=== PATIENT | female | born 1955 | race African-American/Black ===

== ENCOUNTER 2016-09-29 09:55 | Day surgery (SDC) | payer BC ==
--- NOTE | 2016-09-29 07:37 | History and Physical Report ---
DATE OF EVALUATION: 09/29/2016. CHIEF COMPLAINT AND HISTORY OF CHIEF COMPLAINT: This patient presents with a history of intractable lumbar radiculitis. The patient does have a history of spinal surgery and unresolved pain throughout the back and legs. Due to the failure of all therapies and medication-related issues, she was referred for an intraspinal infusion trial by her primary care physician, Dr. Mirza Arevalo. She is here for an implanted spinal catheter infusion trial with hydromorphone. Her CT studies do show pedicle screw and denisse fusion of the lumbar spine from 3- 4 to 5-1. PAST MEDICAL HISTORY: Hypertension, asthmatic bronchitis, gastrointestinal reflux, irritable bowel syndrome, bladder dysfunction with incontinence, migraine headaches, anxiety disorder. REVIEW OF SYSTEMS: The patient seems appropriate and in no acute distress. The remainder of the systems review shows [] SOCIAL HISTORY: Caffeine. FAMILY HISTORY: Provided. PAST SURGICAL HISTORY: Lumbar spinal surgery times two, spinal stimulator, laminectomy insertion. ALLERGIES: List provided; includes multiple antibiotics. MEDICATIONS ON ADMISSION: To be provided. PHYSICAL EXAMINATION: General: Height and weight are unknown. Vital Signs: Blood pressure is 140/70. Musculoskeletal: Current examination shows diffuse tenderness in the lumbar spine. Range of motion does cause pain throughout the low back, adjacent laminectomy scar, and extending into bilateral lower extremities. Ambulation: Suggests an assistive device. Neurologic: Cranial nerves are intact. IMPRESSIONS: 1. POSTLUMBAR LAMINECTOMY SYNDROME, ICD10 CODE M96.1. 2. LUMBAR RADICULITIS, ICD10 CODE M54.16 AND M54.17. PLANS: This patient is here for an implanted spinal catheter infusion trial with hydromorphone to determine if the full implantation of a system would be of any value in long-term pain control. The implanted catheter variation is being used to help limit the incidents of side effects including a spinal headache which is important because of her history of headaches. The implanted spinal catheter procedure has been thoroughly discussed including incision which may require removal should the trial fail. The potential risks, side effects, and complications including nerve root injury, spinal headache, and all other potential nervous system and vascular complications, have all been reviewed and discussed. All of the appropriate information through the grocery store associate has been provided for review. All questions have been answered. We will consider this an outpatient procedure, although an overnight stay will be evaluated. Vitaly Bartlett D.O. Date Time JOB NUMBER: [id number] cc: Tim June
[~2016-09-29 09:55] MED LIST: ACETAMINOPHEN 1000MG/100 ML PREMIX IV ONE; FAMOTIDINE 20MG TABLET PO ONE; HYDROMORPHONE HCL IV ONE; HYDROMORPHONE HCL/PF 0.002 MG in 0.9 % SODIUM CHLORIDE 10ML VIA 0.998 ML IV ONE; LEVOFLOXACIN 500MG IVPB 100 ML IVPB ONE; MECLIZINE 25 MG TABLET PO ONE; METOCLOPRAMIDE 10 MG TABLET PO ONE; SODIUM CHLORIDE 0.9% IV ONE
[2016-09-29] MEDS ORDERED: DIPHENHYDRAMINE HCL IV 50 MG/ML VIAL IVP PRN ×2 (13:13)
[2016-09-29] MEDS ORDERED: TEMAZEPAM 15 MG CAPSULE PO PRN ×2 (13:13)
[2016-09-29] MEDS ORDERED: OXYCODONE/APAP 10MG-325MG TABLET PO PRN (13:13)
[2016-09-29] MEDS ORDERED: METOCLOPRAMIDE HCL 10 MG/2 ML VIAL IVP PRN (13:13)
[2016-09-29] MEDS ORDERED: HYDROCODONE/APAP 7.5/325MG TABLET PO PRN ×2 (13:13)
[2016-09-29] MEDS ORDERED: METOCLOPRAMIDE 10 MG TABLET PO PRN (13:13)
[2016-09-29] MEDS ORDERED: AL HYDROX/MAG HYDROX 30ML UD PO PRN (13:13)
[2016-09-29] MEDS ORDERED: SENNOSIDES/DOCUSATE SODIUM UD CAPSULE PO PRN ×2 (13:13)
[2016-09-29] MEDS ORDERED: DIPHENHYDRAMINE HCL 25 MG CAPSULE PO PRN ×2 (13:13)
[2016-09-29] MEDS ORDERED: NALOXONE 0.4 MG/1 ML VIAL IVP PRN (13:13)
[2016-09-29] MEDS ORDERED: HYDROMORPHONE HCL 2 MG/ML VIAL IM PRN (13:13)
[2016-09-29] MEDS ORDERED: ACETAMINOPHEN 325 MG TAB PO PRN ×2 (13:13)
[2016-09-29] MEDS ORDERED: HYOSCYAMINE 0.125 MG SL PRN (13:20)
[2016-09-29] MEDS ORDERED: ONDANSETRON 8 MG SL PRN (13:21)
[2016-09-29] MEDS ORDERED: PROMETHAZINE 25 MG PO PRN (13:22)
[2016-09-29] MEDS ORDERED: PATIENT OWN MED: CYCLOBENZAPRINE 10 MG PO PRN (13:22)
[2016-09-29] MEDS ORDERED: HYDROXYZINE 25 MG PO PRN ×3 (13:25→13:26)
[2016-09-29] MEDS ORDERED: PROPOFOL 10 MG/ML VIAL IV ONE (13:33)
[2016-09-29] MEDS ORDERED: MIDAZOLAM HCL 2MG/2ML VIAL IV ONE (13:33)
[2016-09-29] MEDS ORDERED: KETAMINE HCL 10 MG/ML (20ML) VIAL *PACU IV ONE (13:33)
[2016-09-29] MEDS ORDERED: FENTANYL PF 100MCG/2ML VIAL IV ONE (13:33)
[2016-09-29] MEDS ORDERED: LIDOCAINE 2% MDV (20MG/ML) 20ML VIAL IV ONE (13:33)
[2016-09-29] MEDS ORDERED: ONDANSETRON HCL IV 4 MG/2 ML VIAL IVP ONE (14:34)
[2016-09-29] MEDS ORDERED: HYDROMORPHONE HCL 2 MG/ML VIAL IV ONE (14:34)
[2016-09-29] MEDS ORDERED: BUPIVACAINE 0.5% W/EPI MPF 30 ML VIAL IVP ONE (14:34)
[2016-09-29] MEDS ORDERED: LIDOCAINE 1% W/EPI 1:200,000 MPF 30ML SQ ONE (14:34)
[2016-09-29] MEDS: HYDROMORPHONE HCL 1 MG/ML CPJ IM PRN ×2 (14:44→20:06)
--- NOTE | 2016-09-29 14:50 | Operative Note - [facility] ---
PAIN SERVICE OPERATIVE REPORT DATE OF PROCEDURE: 09/29/2016. SURGEON: Vitaly Bartlett D.O. PREOPERATIVE DIAGNOSIS: 1. POSTLUMBAR LAMINECTOMY SYNDROME, ICD10 CODE M96.1. 2. LUMBAR RADICULITIS, ICD10 CODE M54.16 AND M54.17. PROCEDURE: 1. Fluoroscopically guided spinal access at 12-1, placement of spinal catheter inserted midline at T10. 2. Diagnostic myelography with radiologic supervision and interpretation. 3. Spinal opioid bolus of hydromorphone 0.002 mg, spinal space. 4. Incision, subcutaneous dissection, and anchoring of spinal catheter to the supraspinous fascia using anchoring device and nonabsorbable suture. 5. Incision, subcutaneous dissection, and creation of small subcutaneous pouch at the right posterior gluteal margin. 6. Tunneling of spinal catheter into posterior gluteal margin pouch. 7. Resect and interface spinal catheter by way of connector to second catheter component tunneled superior 6.0 cm exiting the skin. 8. Interface externalized catheter to pump infusing hydromorphone at 0.04 mg per day. 9. Closure of midline incision with Vicryl for the fascia and running subcuticular Vicryl for the skin; Steri-Strips. Closure of flank gluteal incision with nylon suture. Dressings were placed securing catheter and all connections under sterile dressing. 10. Epidural access at L1-2 above surgical hardware for epidural blood patch. Attempted aspiration of blood unsuccessful. Blood patch terminated and the needle was removed. Dressing reinforced. 11. The patient was transported to the recovery room flat with a pillow under the head and knees. ANESTHESIA: Local sedation. ANESTHESIA PROVIDER: Brian Romeo CRNA. INDICATIONS: This patient presents with a history of intractable pain pattern which is postlaminectomy. Screws, rods, and hardware fusion from 3-4 to 5-1 with probable laminotomy defect at 2-3. Due to the failure of all therapies she is here for a spinal infusion trial with hydromorphone with an implanted catheter option to determine if the implantation of a permanent system can be of any value in pain control. DESCRIPTION OF PROCEDURE: Intravenous line, vital sign monitoring, intravenous sedation. Prepped and draped with sterile technique under imaging. Above the hardware the spinal space at L1-2 was identified and infiltrated with local for a possible epidural blood patch. Moving one level up at 12-1, the skin was infiltrated. A 20-gauge spinal needle beveled with the long axis in a paramedian approach was placed into the spinal space using AP and lateral imaging for guidance. With cerebrospinal fluid flow a thin-walled spinal catheter was advanced midline and positioned at T10. Diagnostic myelography was performed. The resulting flow characteristics were appropriate and diffuse, confirming flow in the space. A bolus of hydromorphone 0.002 mg was given in the spinal space. The skin above and below the needle was infiltrated. An incision was made and subcutaneous dissection was conducted to form a pouch for anchoring the catheter. The needle was removed and the catheter was anchored to the supraspinous fascia with an anchoring device and nonabsorbable suture. At the right posterior gluteal margin, which was the site picked by the patient for the possible permanent placement of the pump, the skin was infiltrated and an incision was made. Subcutaneous dissection was conducted to form a small pouch. A tunneling tool was then used to carry the spinal catheter into the small pouch at the flank. This catheter was then resected and interfaced with the second catheter component by way of a connector. A tunneling tool was then used to carry the second catheter component above the site and out the skin. This external catheter was then interfaced with an infusion device which was set to deliver by continuous infusion hydromorphone at 0.04 mg per day. The midline incision was closed with Vicryl for the fascia running subcuticular Vicryl for the skin. The right posterior pouch was then closed with nylon suture. Dressings were placed securing the catheter and all of its connections under sterile dressing. An epidural blood patch was then planned. The skin at 1-2 was infiltrated. An 18-gauge Tuohy needle with loss of resistance into the epidural space. Attempts to draw blood from the antecubital and all other peripheral sources was unsuccessful. The attempted blood patch was then terminated and the needle was removed. The dressings were all reinforced. She was transported to the recovery room stable, showing no side effects from the procedure or the sedation. In the recovery room she was kept flat and when stable was transported to the floor. She will be kept flat for four hours and then slowly elevated for one hour. We will evaluate and treat the headache accordingly if it happens. All other instructions were then given. She will be discharged in the morning. DISCHARGE INSTRUCTIONS: 1. The sites will remain clean and dry. No showering or bathing in any way that would disrupt dressings. If it happens, contact the clinic. 2. Standard medications may be resumed including an antibiotic with Levaquin 500 mg once a day for 14 days. 3. The trial will run 12 to 14 days. At the end of this period of time, we will either remove the indwelling catheter or place the permanent device by interfacing to the indwelling system. 4. The patient will be evaluated in the office. Vitaly Bartlett D.O. Date Time JOB NUMBER: [id number] cc: Mirza Arevalo M.D. MTDChristina
[2016-09-29] MEDS: OXYCODONE/APAP 10MG-325MG TABLET PO PRN ×2 (17:09→21:41)
[2016-09-29] MEDS: LORAZEPAM 1 MG PO PRN ×2 (17:12→23:01)
[2016-09-29] MEDS ORDERED: LEVOCETIRIZINE 5 MG PO SCH (22:00)
[2016-09-29] MEDS ORDERED: PATIENT OWN MED: GABAPENTIN 600 MG PO SCH (22:00)
[2016-09-29] MEDS: RINGERS SOLUTION,LACTATED 1,000 ML IV SCH (23:04)
[2016-09-30] MEDS: RINGERS SOLUTION,LACTATED 1,000 ML IV SCH ×2 (00:52→06:07)
[2016-09-30] MEDS: HYDROMORPHONE HCL 1 MG/ML CPJ IM PRN ×2 (00:58→06:14)
[2016-09-30] MEDS: OXYCODONE/APAP 10MG-325MG TABLET PO PRN ×2 (03:25→08:54)
[2016-09-30] MEDS ORDERED: PATIENT OWN MED: OMEPRAZOLE 40 MG PO SCH (07:00)
[2016-09-30] MEDS ORDERED: METOPROLOL SUCCINATE 100 MG PO SCH (10:00)
[2016-09-30] MEDS ORDERED: PATIENT OWN MED: ESCITALOPRAM 20 MG PO SCH (10:00)
[2016-09-30] MEDS ORDERED: PATIENT OWN MED: FUROSEMIDE 20 MG PO SCH (10:00)
[2016-09-30] MEDS ORDERED: BENAZEPRIL 40 MG PO SCH (10:00)
== END 2016-09-30 09:08 | disposition home or self-care (01) ==
LOC: SUR 09:55 → MEDSURG 13:57 → SUR 09-30 09:08
PROVIDERS: ATTEND Pain Medicine Interventional Pain Medicine
DX: M96.1 Postlaminectomy syndrome, not elsewhere classified (principal); M54.16 Radiculopathy, lumbar region; M54.17 Radiculopathy, lumbosacral region; I10 Essential (primary) hypertension; J45.909 Unspecified asthma, uncomplicated
CPT/HCPCS: 72020; 93005; 62350; 00630; J2405; J1170 ×3; J3010; J1956; J2765; J7040; J7120

== ENCOUNTER 2016-10-13 09:16 | Day surgery (SDC) | payer BC ==
--- NOTE | 2016-10-13 07:03 | History and Physical Report ---
DATE OF EVALUATION: 10/13/2016. CHIEF COMPLAINT AND HISTORY OF CHIEF COMPLAINT: This is a patient with an ongoing implanted spinal catheter infusion trial with hydromorphone. She is here for completion of permanent implant. PAST MEDICAL HISTORY: Hypertension, asthmatic bronchitis, gastrointestinal disease with reflux, bladder dysfunction, migraine headaches, anxiety disorder. REVIEW OF SYSTEMS: The patient seems appropriate and in no acute distress. The remainder of the systems review is noncontributory. SOCIAL HISTORY: Caffeine. FAMILY HISTORY: Unavailable. PAST SURGICAL HISTORY: Spinal surgery times two, spinal cord stimulator implant , laminectomy insertion. ALLERGIES: To be provided including antibiotics. MEDICATIONS ON ADMISSION: To be provided. PHYSICAL EXAMINATION: General: Height and weight are not known. Vital Signs: Blood pressure is 130/60. Pulse 90. Respiratory rate is 20. Oxygen saturation is 98%. HEENT: Within normal limits. Lungs: Clear. Heart: Regular rate and rhythm. Abdomen: Nontender. Musculoskeletal: Examination of the musculoskeletal system shows the dressing still intact for the implanted catheter. Underlying pain pattern is laminectomy radiculitis of the bilateral lower extremities. Neurologic: Cranial nerves are intact. IMPRESSIONS: 1. POSTLUMBAR LAMINECTOMY SYNDROME, ICD10 CODE M96.1. 2. LUMBAR RADICULITIS, ICD10 CODE M54.16 AND M54.17. 3. IMPLANTED SPINAL CATHETER INFUSION TRIAL WITH HYDROMORPHONE. PLANS: The patient is here for completion and full implant of the system. Although possibly an outpatient procedure, this patient has a number of issues at home which would best be served by keeping the patient for an overnight stay. She will be evaluated for discharge in the morning. Vida Bartlett D.O. Date Time JOB NUMBER: [id number] cc: Tim June
[~2016-10-13 09:16] MED LIST changes: -HYDROMORPHONE HCL/PF 0.002 MG in 0.9 % SODIUM CHLORIDE 10ML VIA 0.998 ML IV ONE; +HYDROMORPHONE HCL/PF 0.002 MG in 0.9 % SODIUM CHLORIDE 10ML VIA 0.998 ML IVP ONE
[2016-10-13] MEDS ORDERED: METOCLOPRAMIDE 10 MG TABLET PO PRN (12:48)
[2016-10-13] MEDS ORDERED: NALOXONE 0.4 MG/1 ML VIAL IVP PRN (12:48)
[2016-10-13] MEDS ORDERED: OXYCODONE/APAP 10MG-325MG TABLET PO PRN (12:48)
[2016-10-13] MEDS ORDERED: DIPHENHYDRAMINE HCL 25 MG CAPSULE PO PRN ×2 (12:48)
[2016-10-13] MEDS ORDERED: HYDROCODONE/APAP 7.5/325MG TABLET PO PRN ×2 (12:48)
[2016-10-13] MEDS ORDERED: TEMAZEPAM 15 MG CAPSULE PO PRN ×2 (12:48)
[2016-10-13] MEDS ORDERED: ACETAMINOPHEN 325 MG TAB PO PRN ×2 (12:48)
[2016-10-13] MEDS ORDERED: SENNOSIDES/DOCUSATE SODIUM UD CAPSULE PO PRN ×2 (12:48)
[2016-10-13] MEDS ORDERED: AL HYDROX/MAG HYDROX 30ML UD PO PRN (12:48)
[2016-10-13] MEDS ORDERED: DIPHENHYDRAMINE HCL IV 50 MG/ML VIAL IVP PRN ×2 (12:48)
[2016-10-13] MEDS ORDERED: METOCLOPRAMIDE HCL 10 MG/2 ML VIAL IVP PRN (12:48)
[2016-10-13] MEDS ORDERED: HYDROMORPHONE HCL 2 MG/ML VIAL IM PRN (12:48)
[2016-10-13] MEDS ORDERED: HYDROMORPHONE HCL 2 MG/ML VIAL IV ONE ×2 (13:27→13:32)
[2016-10-13] MEDS ORDERED: ONDANSETRON HCL IV 4 MG/2 ML VIAL IVP ONE (13:32)
[2016-10-13] MEDS ORDERED: PROPOFOL 10 MG/ML VIAL IV ONE (13:32)
[2016-10-13] MEDS ORDERED: FENTANYL PF 100MCG/2ML VIAL IV ONE (13:32)
[2016-10-13] MEDS ORDERED: MIDAZOLAM HCL 2MG/2ML VIAL IV ONE (13:32)
[2016-10-13] MEDS ORDERED: DEXMEDETOMIDINE HCL 200 MCG/2 ML VIAL IV ONE (13:32)
[2016-10-13] MEDS ORDERED: *PACU ONLY* KETAMINE HCL 10 MG/ML (20ML) VIAL IV ONE (13:32)
[2016-10-13] MEDS ORDERED: PROMETHAZINE HCL 25 MG/ML VIAL IVP ONE (13:32)
[2016-10-13] MEDS: HYDROMORPHONE HCL 1 MG/ML CPJ IM PRN ×2 (13:41→20:11)
--- NOTE | 2016-10-13 13:50 | Operative Note ---
PAIN SERVICE OPERATIVE REPORT DATE OF PROCEDURE: 10/13/2016. PREOPERATIVE DIAGNOSES: 1. INTRACTABLE LUMBAR RADICULITIS, ICD10 CODE M54.16. 2. POSTLAMINECTOMY SYNDROME, ICD10 CODE M96.1. PROCEDURES: 1. Fluoroscopically guided removal of external spinal catheter. 2. Incision, subcutaneous dissection, and revision of indwelling catheter interfaced to second catheter component with connector. 3. Subcutaneous dissection of right posterior gluteal margin formation of pouch suitable for a Medtronic 40 mL programmable pump. 4. Interface revise catheter to pump. Placement of pump to revised catheter into pouch, securing to the posterior fascia using nonabsorbable suture. 5. Aspiration of 1.0 mL of catheter contents through access port. 6. Diagnostic myelography with radiologic supervision and interpretation. 7. Bolus of hydromorphone 0.001 mg through access port. 8. Closure of incisions with Vicryl for fascia and running subcuticular Vicryl for skin. 9. Programming of pump to deliver by continuous infusion hydromorphone 0.08 mg per day. 10. Dermabond closure system was used to approximate the edges of the wound after a subcuticular closure with Vicryl for the fascia for closure. SURGEON: Vitaly Bartlett D.O. ANESTHESIA: Local sedation. ANESTHESIA PROVIDER: Brian Romeo CRNA. INDICATIONS: This is a patient with a history of intractable postlaminectomy radiculitis. She has an implanted spinal infusion system with hydromorphone. With the success of the indwelling spinal catheter trial, she is here for completion of the implant. DESCRIPTION OF PROCEDURE: Intravenous line, vital sign monitoring, and IV sedation by Anesthesia with the patient positioned prone. Sterile prep and sterile technique. Under imaging the dressing was removed and the external catheter was cut and removed by pulling away from the incision. The skin was infiltrated at the access pouch, right posterior gluteal margin. An incision was made and subcutaneous dissection was conducted to the connector which interfaced the indwelling spinal catheter to the external catheter. The catheter was clamped. The indwelling catheter was then resected and revised with a second catheter component by way of connector. At the incision, subcutaneous dissection was conducted to form a pouch of suitable size and depth for the new pump identified as a Medtronic 40 mL programmable pump. The revised catheter was then interfaced to the new pump and placed into the pouch. It was secured to the posterior fascia using nonabsorbable suture. Antibiotic irrigation and Bovie for hemostasis. The pump was then secured to the pouch with nonabsorbable suture. A total of 1.0 mL of catheter contents was then aspirated through the access port, clearing the catheter of opioid and cerebrospinal fluid mixture. Diagnostic myelography was then performed through the access port. The resulting flow characteristics showed the catheter intact at the pump, and appropriate flow characteristics approximating T10-11 midline spinal space. A bolus of hydromorphone 0.001 mg was given through the spinal catheter. The catheter was irrigated with contrast. With the pump securely into the pouch, the incision was closed with Vicryl for the fascia and running subcuticular Vicryl for the skin. Dermabond closure system was then placed. The pump was then programmed to deliver by continuous infusion hydromorphone at 0.08 mg per day. With the dressing in place she was transported to the recovery room stable, stable, showing no side effects from the procedure or the sedation. She will be monitored and kept overnight for observation and then evaluated in the morning. DISCHARGE INSTRUCTIONS: 1. The sites will remain clean and dry, although Dermabond will allow showering. 2. Standard medications may be resumed including an antibiotic with Levaquin 500 mg once a day for 14 days. 3. Spinal opioid side effects including risks for depression, nausea and vomiting, constipation, urinary retention, and rash have been discussed and reviewed. 4. The patient will be seen in the office in the next five to seven days to evaluate the incisional sites. Until then activities should stay low. Vitaly Bartlett D.O. Date Time JOB NUMBER: [id number] cc: Tim June
[2016-10-13] MEDS ORDERED: HYDROXYZINE 25 MG PO PRN ×3 (14:04→14:07)
[2016-10-13] MEDS ORDERED: PROMETHAZINE 25 MG PO PRN (14:14)
[2016-10-13] MEDS ORDERED: CYCLOBENZAPRINE 10 MG PO PRN (14:15)
[2016-10-13] MEDS ORDERED: HYOSCYAMINE 0.125 MG SL PRN (14:19)
[2016-10-13] MEDS: OXYCODONE/APAP 10MG-325MG TABLET PO PRN (17:43)
[2016-10-13] MEDS: RINGERS SOLUTION,LACTATED 1,000 ML IV PRN (19:03)
[2016-10-13] MEDS: ONDANSETRON 8 MG SL PRN (20:19)
[2016-10-13] MEDS: LEVOCETIRIZINE 5 MG PO SCH (22:03)
[2016-10-13] MEDS: GABAPENTIN 600 MG PO SCH (22:03)
[2016-10-13] MEDS: LORAZEPAM 0.5 MG TABLET PO PRN (22:04)
[2016-10-14] MEDS: OXYCODONE/APAP 10MG-325MG TABLET PO PRN ×7 (00:48→23:02)
[2016-10-14] MEDS: RINGERS SOLUTION,LACTATED 1,000 ML IV PRN ×2 (02:54→21:16)
[2016-10-14] MEDS: HYDROMORPHONE HCL 1 MG/ML CPJ IM PRN ×2 (02:55→08:05)
[2016-10-14] MEDS: LORAZEPAM 0.5 MG TABLET PO PRN ×2 (05:37→22:31)
[2016-10-14] MEDS: OMEPRAZOLE 40 MG PO SCH (06:47)
[2016-10-14] MEDS: ONDANSETRON 8 MG SL PRN (06:47)
[2016-10-14] MEDS: AMLODIPINE BESYLATE 5MG TAB PO SCH (09:42)
[2016-10-14] MEDS: BENAZEPRIL 40 MG PO SCH (09:43)
[2016-10-14] MEDS: ESCITALOPRAM 20 MG PO SCH (09:44)
[2016-10-14] MEDS: GABAPENTIN 600 MG PO SCH ×2 (09:44→21:21)
[2016-10-14] MEDS: SPIRONOLACTONE 25 MG PO SCH (09:45)
[2016-10-14] MEDS: METOPROLOL SUCCINATE 100 MG PO SCH (09:45)
[2016-10-14] MEDS: MORPHINE SULFATE 30MG TABLET.ER PO SCH (09:46)
[2016-10-14] MEDS: LEVOCETIRIZINE 5 MG PO SCH (21:20)
[2016-10-15] MEDS: OXYCODONE/APAP 10MG-325MG TABLET PO PRN ×2 (02:37→08:36)
[2016-10-15] MEDS: RINGERS SOLUTION,LACTATED 1,000 ML IV PRN (05:49)
[2016-10-15] MEDS: BENAZEPRIL 40 MG PO SCH (10:07)
[2016-10-15] MEDS: AMLODIPINE BESYLATE 5MG TAB PO SCH (10:08)
[2016-10-15] MEDS: MORPHINE SULFATE 30MG TABLET.ER PO SCH (10:08)
[2016-10-15] MEDS: ESCITALOPRAM 20 MG PO SCH (10:09)
[2016-10-15] MEDS: METOPROLOL SUCCINATE 100 MG PO SCH (10:09)
[2016-10-15] MEDS: GABAPENTIN 600 MG PO SCH (10:09)
[2016-10-15] MEDS: OMEPRAZOLE 40 MG PO SCH (10:09)
[2016-10-15] MEDS: SPIRONOLACTONE 25 MG PO SCH (10:10)
--- NOTE | 2016-10-15 15:28 | RADIOLOGY REPORT ---
EXAM: THORACOLUMBAR SPINE, SINGLE VIEW HISTORY: PAIN PUMP IMPLANT. TECHNIQUE: A single AP supine view of the spine including the lower two thirds of the thoracic spine and the entire lumbar spine was obtained portably. Comparison: Spine single view dated 09/29/16. FINDINGS: A dual lead interspinal stimulator is again noted in place likely entering the spinal canal at the T10-T11 level. The lead tips are at the upper T8 level. These are unchanged. The extraspinal portions of the leads extend inferior and left of midline where there is a stimulator generator projecting just above the iliac crest level. An electronic/mechanical mediation pump projects at the level of the right flank. No definite catheter is visualized extending from this toward the spine. Post surgical changes are noted in the lower lumbar spine. Degenerative changes are scattered throughout the visualized spine associated with mild S- shaped thoracolumbar curvature. IMPRESSION: DUAL LEAD INTERSPINAL STIMULATOR IN PLACE. MECHANICAL/ELECTRONIC PUMP SUGGESTED IN THE RIGHT FLANK, DISCUSSED ABOVE. JOB NUMBER: [id number] MTDD
== END 2016-10-15 10:44 | disposition home or self-care (01) ==
LOC: SUR 09:16 → MEDSURG 12:35 → SUR 10-15 10:44
PROVIDERS: ATTEND Pain Medicine Interventional Pain Medicine
DX: M96.1 Postlaminectomy syndrome, not elsewhere classified (principal); M54.16 Radiculopathy, lumbar region; M54.17 Radiculopathy, lumbosacral region; I10 Essential (primary) hypertension; J45.909 Unspecified asthma, uncomplicated; F17.200 Nicotine dependence, unspecified, uncomplicated
CPT/HCPCS: 62367; 72020; 62350; 62362; 00630; Q9967; J2405; J1170 ×4; J3010; J3490; C1755; J1956; J2550; J2765; J7120